=== PATIENT | male | born 1995 | race Caucasian/White ===

== ENCOUNTER 2020-03-24 08:01 | Inpatient (IN) | payer BC, OTHER ==
[~2020-03-24] VITALS: Ht 175.3 cm; Wt 85.0 kg
[2020-03-24 09:09] LABS: Basophils # (auto) 0 10 ^3/uL (0-0.2); Basophils % (auto) 0.4 % (0.0-2.0); Eosinophils # (auto) 0.2 10 ^3/uL (0-0.8); Eosinophils % (auto) 3.7 % (0.0-7.0); Hematocrit 40.9 % (41.0-53.0); Hemoglobin 14.6 g/dL (13.5-17.5); Lymphocytes # (auto) 1.3 10 ^3/uL (0.4-5.4); Lymphocytes % (auto) 18.8 % (10.0-50.0); Mean Corpuscular Hemoglobin 31.1 pg (28.0-32.0); Mean Corpuscular Hgb Conc. 35.8 g/dL (32.0-36.0); Mean Corpuscular Volume 86.9 fL (80.0-100.0); Monocytes # (auto) 0.5 10 ^3/uL (0-1.3); Monocytes % (auto) 6.9 % (0.0-12.0); Neutrophils # (auto) 4.7 10 ^3/uL (1.6-8.6); Neutrophils % (auto) 70.2 % (37.0-80.0); Red Blood Cells 4.71 10^6/uL (4.5-5.90); Red Cell Distribution Width 13.2 % (11.8-14.3); White Blood Cell 6.7 10^3/uL (4.4-10.8)
[2020-03-24 09:29] LABS: Albumin 3.9 g/dL (3.4-5.0); Anion Gap 7 (5-15); Blood Urea Nitrogen 13 mg/dL (7-18); Calcium 8.1 mg/dL (8.5-10.1); Carbon Dioxide 24 mmol/L (21-32); Chloride 110 mmol/L (98-107); Glucose 102 mg/dL (74-106); Magnesium 2.2 mg/dL (1.6-2.6); Sodium 141 mmol/L (136-145)
[2020-03-24 09:34] LABS: Alanine Aminotransferase 34 U/L (16-61); Alkaline Phosphatase 52 U/L (45-117); Aspartate Aminotransferase 17 U/L (15-37); BUN/Creatinine Ratio 14.6; Bilirubin, Total 0.5 mg/dL (0.2-1.0); GFR African American 135 mL/min; GFR Non-African American 112 mL/min; Total Protein 7.2 g/dL (6.4-8.2)
[2020-03-24] MEDS ORDERED: SODIUM CHLORIDE 0.9% 1,000 ML IV ONE (10:45)
[2020-03-24] MEDS ORDERED: ONDANSETRON HCL 4 MG/2 ML VIAL IV PRN (12:15)
[2020-03-24] MEDS ORDERED: ACETAMINOPHEN 500 MG TAB PO PRN (12:15)
[2020-03-24] MEDS ORDERED: traMADol HCL 50 MG TAB PO PRN (12:15)
[2020-03-24] MEDS ORDERED: NITROGLYCERIN 0.4 MG SL TAB SL PRN (12:15)
[2020-03-24] MEDS ORDERED: MORPHINE SULFATE INJECTION 2 MG/ML SYRG IV PRN (12:15)
[2020-03-24] MEDS ORDERED: LACTULOSE 20Gm/30ML SOLN PO PRN (12:15)
[2020-03-24] MEDS ORDERED: TEMAZEPAM 15 MG CAP PO PRN (12:15)
[2020-03-24] MEDS: SODIUM CHLORIDE 0.9% 1,000 ML IV SCH (12:48)
[2020-03-24] MEDS ORDERED: LIDOCAINE 1% HCL (LOCAL ANESTH.) INJ 20ML MDV ONE (14:08)
[2020-03-24] MEDS ORDERED: LIDOCAINE 1% HCL (LOCAL ANESTH.) INJ 20ML MDV ID ONE (14:45)
[2020-03-24] MEDS ORDERED: LORazepam 2MG/ML-1ML VIAL IV PRN (20:00)
[2020-03-24] MEDS: CLINDAMYCIN 300MG IV 50 ML IV SCH (22:22)
[2020-03-24 22:30] LABS: Urine Bacteria NONE SEEN /hpf (None Seen); Urine Blood Negative /uL (Negative); Urine Specific Gravity 1.013 (1.001-1.035); Urine WBC <1 /hpf (0 - 3)
[2020-03-24 22:57] LABS: Amphetamine Screen, Urine NEGATIVE (NEGATIVE); Barbiturate Scree,Urine NEGATIVE (NEGATIVE); Benzodiazephine Screen, Urine NEGATIVE (NEGATIVE); Cannabinoid Screen, Urine POSITIVE (NEGATIVE); Cocaine Screen, Urine NEGATIVE (NEGATIVE); Opiate Scree,Urine NEGATIVE (NEGATIVE); Phencyclidine Screen, Urine NEGATIVE (NEGATIVE)
[2020-03-25] MEDS: SODIUM CHLORIDE 0.9% 1,000 ML IV SCH ×2 (00:45→13:15)
[2020-03-25] MEDS: CLINDAMYCIN 300MG IV 50 ML IV SCH ×3 (04:48→21:43)
[2020-03-25 05:00] VITALS: BP 124/71
[2020-03-25 05:01] VITALS: BP 124/71
[2020-03-25 08:00] VITALS: BP 124/84
[2020-03-25] MEDS: ASPirin 81 mg TAB PO SCH (10:39)
[2020-03-25 16:00] VITALS: BP 103/60
[2020-03-25 21:47] VITALS: BP 115/73
[2020-03-26] MEDS: SODIUM CHLORIDE 0.9% 1,000 ML IV SCH ×2 (00:52→14:15)
[2020-03-26] MEDS: CLINDAMYCIN 300MG IV 50 ML IV SCH ×2 (06:41→14:00)
[2020-03-26 06:54] VITALS: BP 110/82
[2020-03-26 08:27] LABS: Basophils # (auto) 0 10 ^3/uL (0-0.2); Basophils % (auto) 0.1 % (0.0-2.0); Eosinophils # (auto) 0.1 10 ^3/uL (0-0.8); Eosinophils % (auto) 1.3 % (0.0-7.0); Hematocrit 41.6 % (41.0-53.0); Hemoglobin 14.6 g/dL (13.5-17.5); Lymphocytes # (auto) 1.5 10 ^3/uL (0.4-5.4); Lymphocytes % (auto) 15.6 % (10.0-50.0); Mean Corpuscular Hemoglobin 30.3 pg (28.0-32.0); Mean Corpuscular Volume 86.6 fL (80.0-100.0); Monocytes # (auto) 0.9 10 ^3/uL (0-1.3); Monocytes % (auto) 9.1 % (0.0-12.0); Neutrophils # (auto) 7.3 10 ^3/uL (1.6-8.6); Neutrophils % (auto) 73.9 % (37.0-80.0); Red Blood Cells 4.81 10^6/uL (4.5-5.90); Red Cell Distribution Width 13.3 % (11.8-14.3); White Blood Cell 9.9 10^3/uL (4.4-10.8)
[2020-03-26 08:48] VITALS: BP 106/73
[2020-03-26 09:09] LABS: BUN/Creatinine Ratio 16.9; Calcium 8.3 mg/dL (8.5-10.1); Potassium 4.2 mmol/L (3.5-5.1)
[2020-03-26] MEDS: ASPirin 81 mg TAB PO SCH (10:00)
[2020-03-26 13:22] VITALS: BP 106/73
== END 2020-03-26 15:05 | disposition home or self-care (01) | DRG 312 ==
LOC: ER 08:01 → TELE 08:02 → TELE-CENTR 03-25 03:10
PROVIDERS: ADMIT Internal Medicine; ATTEND Internal Medicine
PROC: 0CQ1XZZ Repair Lower Lip, External Approach (ICD-10-PCS; principal; 2020-03-24)
DX: R55 Syncope and collapse (principal); D84.9 Immunodeficiency, unspecified; F12.90 Cannabis use, unspecified, uncomplicated; F17.200 Nicotine dependence, unspecified, uncomplicated; S01.511A Laceration without foreign body of lip, initial encounter; Z20.822 Contact with and (suspected) exposure to COVID-19; R00.1 Bradycardia, unspecified; E66.9 Obesity, unspecified; Z68.27 Body mass index [BMI] 27.0-27.9, adult; Y93.89 Activity, other specified; Y92.89 Other specified places as the place of occurrence of the external cause; Y99.8 Other external cause status
CPT/HCPCS: 12013; 36415; 70450; 70551; 71045; 72125; 80048; 80053; 80307; 81001; 82550; 83735; 84443; 84484; 85025; 85379; 85652; 87426; 93005; 93306; 93886; 95819; 96361; 96365; G0378; J2001; J3490

== ENCOUNTER → 2020-05-31 | Outpatient (CLI) | payer BC ==
[2020-05-31 16:06] LABS: Calcium 8.8 mg/dL (8.5-10.1); Magnesium 2.5 mg/dL (1.6-2.6); Potassium 4.1 mmol/L (3.5-5.1)
[2020-05-31 16:09] LABS: BUN/Creatinine Ratio 12.5; Bilirubin, Total 0.6 mg/dL (0.2-1.0); Total Protein 7.4 g/dL (6.4-8.2)
== END | disposition home or self-care (01) ==
LOC: LAB 14:07
PROVIDERS: ATTEND Internal Medicine
DX: I49.9 Cardiac arrhythmia, unspecified (principal)
CPT/HCPCS: 36415; 80053; 82533; 83735; 84443

== ENCOUNTER 2020-06-02 13:45 | Inpatient (IN) | payer BC ==
[~2020-06-02] VITALS: Ht 175.3 cm; Wt 98.8 kg
[2020-06-02] MEDS ORDERED: ASPirin 81 mg TAB PO ONE (14:00)
[2020-06-02] MEDS ORDERED: PROCHLORPERAZINE EDISYLATE 5 MG/ML 2ML VIAL IV ONE (14:45)
[2020-06-02] MEDS ORDERED: MORPHINE SULFATE 4 MG/ML SYR/VIAL IV ONE (14:45)
[2020-06-02 14:48] LABS: Basophils # (auto) 0.1 10 ^3/uL (0-0.2); Basophils % (auto) 0.3 % (0.0-2.0); Eosinophils # (auto) 0 10 ^3/uL (0-0.8); Hematocrit 43.8 % (41.0-53.0); Hemoglobin 15.1 g/dL (13.5-17.5); Lymphocytes % (auto) 3.8 % (10.0-50.0); Mean Corpuscular Hgb Conc. 34.4 g/dL (32.0-36.0); Mean Corpuscular Volume 87.2 fL (80.0-100.0); Monocytes % (auto) 7.6 % (0.0-12.0); Neutrophils # (auto) 23.2 10 ^3/uL (1.6-8.6); Neutrophils % (auto) 88.3 % (37.0-80.0); Nucleated Red Blood Cells % 0.5 %; Platelet Count (auto) 241 10^3/uL (140-450); Red Blood Cells 5.02 10^6/uL (4.5-5.90); Red Cell Distribution Width 13.8 % (11.8-14.3); White Blood Cell 26.3 10^3/uL (4.4-10.8)
[2020-06-02 15:04] LABS: Potassium 3.6 mmol/L (3.5-5.1)
[2020-06-02 15:08] LABS: Urine Bacteria NONE SEEN /hpf (None Seen); Urine Blood 1+ /uL (Negative); Urine Mucus FEW (None Seen); Urine Specific Gravity 1.012 (1.001-1.035); Urine WBC 7 /hpf (0 - 3)
[2020-06-02 15:13] LABS: Albumin 4.7 g/dL (3.4-5.0); Bilirubin, Total 1.2 mg/dL (0.2-1.0); Calcium 8.7 mg/dL (8.5-10.1)
[2020-06-02] MEDS ORDERED: PIPERACILLIN-TAZOB 3.375GM 100 ML IV ONE (15:15)
[2020-06-02] MEDS ORDERED: VANCOMYCIN 1GM/250ML 250 ML IV ONE (15:15)
[2020-06-02 16:56] LABS: Alcohol, Urine < 3.0 mg/dL (0-10); Amphetamine Screen, Urine NEGATIVE (NEGATIVE); Barbiturate Scree,Urine NEGATIVE (NEGATIVE); Benzodiazephine Screen, Urine NEGATIVE (NEGATIVE); Cannabinoid Screen, Urine POSITIVE (NEGATIVE); Cocaine Screen, Urine NEGATIVE (NEGATIVE); Opiate Scree,Urine NEGATIVE (NEGATIVE); Phencyclidine Screen, Urine NEGATIVE (NEGATIVE)
[2020-06-02] MEDS ORDERED: ONDANSETRON HCL 4 MG/2 ML VIAL IV PRN (20:00)
[2020-06-02] MEDS ORDERED: LORazepam 0.5 MG TAB PO PRN (20:00)
[2020-06-02] MEDS ORDERED: LABETALOL HCL 5 MG/ML 4ML SYRINGE IV PRN (20:00)
[2020-06-02] MEDS ORDERED: VANCOMYCIN PER PHARMACY 0 MG IV SCH (20:00)
[2020-06-02] MEDS ORDERED: NITROGLYCERIN 0.4 MG SL TAB SL PRN (20:00)
[2020-06-02] MEDS ORDERED: DOCUSATE CALCIUM 240 MG CAP PO PRN (20:00)
[2020-06-02] MEDS ORDERED: MORPHINE SULF INJ 2 MG/ML SYRINGE 1ML IV PRN ×2 (20:00)
[2020-06-02] MEDS ORDERED: ACETAMINOPHEN 500 MG TAB PO PRN (20:00)
[2020-06-02] MEDS: SODIUM CHLORIDE 0.9% 1,000 ML IV SCH (20:25)
[2020-06-02] MEDS: VANCOMYCIN 1GM/250ML 250 ML IV SCH (22:21)
[2020-06-02 23:36] VITALS: BP 127/80
[2020-06-02 23:49] VITALS: BP 127/80
[2020-06-03] MEDS: PIPERACILLIN-TAZOB 3.375GM 100 ML IV SCH ×5 (00:26→23:48)
[2020-06-03] MEDS: SODIUM CHLORIDE 0.9% 1,000 ML IV SCH ×3 (04:01→22:21)
[2020-06-03 05:00] VITALS: BP 118/71
[2020-06-03 07:13] LABS: Basophils # (auto) 0 10 ^3/uL (0-0.2); Basophils % (auto) 0.2 % (0.0-2.0); Eosinophils # (auto) 0 10 ^3/uL (0-0.8); Eosinophils % (auto) 0.1 % (0.0-7.0); Hematocrit 42.4 % (41.0-53.0); Hemoglobin 14.6 g/dL (13.5-17.5); Lymphocytes # (auto) 1.2 10 ^3/uL (0.4-5.4); Lymphocytes % (auto) 6.5 % (10.0-50.0); Mean Corpuscular Hemoglobin 30.3 pg (28.0-32.0); Mean Corpuscular Hgb Conc. 34.4 g/dL (32.0-36.0); Monocytes # (auto) 1.6 10 ^3/uL (0-1.3); Monocytes % (auto) 8.8 % (0.0-12.0); Neutrophils # (auto) 15.7 10 ^3/uL (1.6-8.6); Neutrophils % (auto) 84.4 % (37.0-80.0); Nucleated Red Blood Cells % 0.1 %; Platelet Count (auto) 219 10^3/uL (140-450); Red Blood Cells 4.82 10^6/uL (4.5-5.90); Red Cell Distribution Width 14.1 % (11.8-14.3); White Blood Cell 18.7 10^3/uL (4.4-10.8)
[2020-06-03 07:29] LABS: INR 1.04 (0.9-1.15)
[2020-06-03 07:40] LABS: Chloride 106 mmol/L (98-107); Potassium 3.4 mmol/L (3.5-5.1); Sodium 138 mmol/L (136-145)
[2020-06-03 07:57] LABS: Alanine Aminotransferase 45 U/L (16-61); Albumin 4.1 g/dL (3.4-5.0); Alkaline Phosphatase 66 U/L (45-117); Anion Gap 13 (5-15); Aspartate Aminotransferase 64 U/L (15-37); BUN/Creatinine Ratio 10.7; Bilirubin, Total 1.8 mg/dL (0.2-1.0); Blood Urea Nitrogen 16 mg/dL (7-18); Calcium 8.4 mg/dL (8.5-10.1); Carbon Dioxide 19 mmol/L (21-32); GFR African American 73 mL/min; GFR Non-African American 61 mL/min; Glucose 90 mg/dL (74-106); Total Protein 7.6 g/dL (6.4-8.2)
[2020-06-03 08:50] VITALS: BP 117/66
[2020-06-03] MEDS: PANTOPRAZOLE 40 MG TAB PO SCH (09:38)
[2020-06-03] MEDS: VANCOMYCIN 1GM/250ML 250 ML IV SCH (09:38)
[2020-06-03] MEDS ORDERED: ENOXAPARIN SOD 40 MG/0.4 ML SYRINGE SC SCH (10:00)
[2020-06-03] MEDS ORDERED: MORPHINE SULF INJ 2 MG/ML SYRINGE 1ML IV PRN (11:45)
[2020-06-03] MEDS ORDERED: traMADol HCL 50 MG TAB PO PRN (11:45)
[2020-06-03 12:54] VITALS: BP 119/68
[2020-06-03 17:00] VITALS: BP 125/78
[2020-06-03 22:00] VITALS: BP 119/71
[2020-06-04 05:00] VITALS: BP 123/68
[2020-06-04] MEDS: PIPERACILLIN-TAZOB 3.375GM 100 ML IV SCH ×3 (05:44→18:00)
[2020-06-04 06:52] LABS: Basophils # (auto) 0 10 ^3/uL (0-0.2); Basophils % (auto) 0.3 % (0.0-2.0); Eosinophils # (auto) 0.2 10 ^3/uL (0-0.8); Eosinophils % (auto) 1.5 % (0.0-7.0); Hematocrit 39.3 % (41.0-53.0); Hemoglobin 13.7 g/dL (13.5-17.5); Lymphocytes # (auto) 1.7 10 ^3/uL (0.4-5.4); Lymphocytes % (auto) 13.4 % (10.0-50.0); Mean Corpuscular Hemoglobin 30.3 pg (28.0-32.0); Mean Corpuscular Hgb Conc. 34.8 g/dL (32.0-36.0); Mean Corpuscular Volume 87.1 fL (80.0-100.0); Monocytes # (auto) 1.3 10 ^3/uL (0-1.3); Monocytes % (auto) 10.3 % (0.0-12.0); Neutrophils # (auto) 9.4 10 ^3/uL (1.6-8.6); Neutrophils % (auto) 74.5 % (37.0-80.0); Platelet Count (auto) 200 10^3/uL (140-450); Red Blood Cells 4.51 10^6/uL (4.5-5.90); White Blood Cell 12.7 10^3/uL (4.4-10.8)
[2020-06-04 07:09] LABS: Potassium 3.5 mmol/L (3.5-5.1)
[2020-06-04 07:14] LABS: Calcium 8.4 mg/dL (8.5-10.1)
[2020-06-04] MEDS: SODIUM CHLORIDE 0.9% 1,000 ML IV SCH ×2 (07:30→17:30)
[2020-06-04 09:05] VITALS: BP 127/76
[2020-06-04] MEDS: PANTOPRAZOLE 40 MG TAB PO SCH (09:59)
[2020-06-04 13:14] VITALS: BP 130/83
[2020-06-04 16:31] VITALS: BP 124/69
[2020-06-04 22:00] VITALS: BP 123/79
[2020-06-05] MEDS: PIPERACILLIN-TAZOB 3.375GM 100 ML IV SCH ×4 (00:21→17:53)
[2020-06-05] MEDS: SODIUM CHLORIDE 0.9% 1,000 ML IV SCH ×2 (03:28→13:30)
[2020-06-05 05:00] VITALS: BP 122/79
[2020-06-05 06:26] LABS: Protein, Urine 58.3 mg/dL (0.0-11.9)
[2020-06-05 07:35] VITALS: BP 129/94
[2020-06-05 07:35] LABS: Basophils # (auto) 0 10 ^3/uL (0-0.2); Basophils % (auto) 0.3 % (0.0-2.0); Eosinophils # (auto) 0.3 10 ^3/uL (0-0.8); Hematocrit 38.6 % (41.0-53.0); Hemoglobin 13.7 g/dL (13.5-17.5); Lymphocytes # (auto) 1.7 10 ^3/uL (0.4-5.4); Lymphocytes % (auto) 16.3 % (10.0-50.0); Mean Corpuscular Hgb Conc. 35.4 g/dL (32.0-36.0); Mean Corpuscular Volume 87.5 fL (80.0-100.0); Monocytes # (auto) 1.3 10 ^3/uL (0-1.3); Monocytes % (auto) 12.1 % (0.0-12.0); Neutrophils # (auto) 7.2 10 ^3/uL (1.6-8.6); Neutrophils % (auto) 68.3 % (37.0-80.0); Platelet Count (auto) 200 10^3/uL (140-450); Red Blood Cells 4.41 10^6/uL (4.5-5.90); Red Cell Distribution Width 13.7 % (11.8-14.3); White Blood Cell 10.6 10^3/uL (4.4-10.8)
[2020-06-05 07:49] LABS: Albumin 3.5 g/dL (3.4-5.0); Calcium 8.3 mg/dL (8.5-10.1); Potassium 3.7 mmol/L (3.5-5.1)
[2020-06-05 07:53] LABS: BUN/Creatinine Ratio 13.8; Bilirubin, Total 1.5 mg/dL (0.2-1.0)
[2020-06-05 09:00] VITALS: BP 129/94
[2020-06-05] MEDS: PANTOPRAZOLE 40 MG TAB PO SCH (10:09)
[2020-06-05 13:00] VITALS: BP 129/86
[2020-06-05 23:25] VITALS: BP 128/82
[2020-06-06] MEDS: PIPERACILLIN-TAZOB 3.375GM 100 ML IV SCH ×2 (00:02→05:39)
[2020-06-06] MEDS: SODIUM CHLORIDE 0.9% 1,000 ML IV SCH ×2 (00:03→09:30)
[2020-06-06 04:45] VITALS: BP 122/73
[2020-06-06 08:27] LABS: Basophils # (auto) 0 10 ^3/uL (0-0.2); Basophils % (auto) 0.4 % (0.0-2.0); Eosinophils # (auto) 0.2 10 ^3/uL (0-0.8); Eosinophils % (auto) 2.7 % (0.0-7.0); Hematocrit 36.5 % (41.0-53.0); Hemoglobin 13.1 g/dL (13.5-17.5); Lymphocytes # (auto) 1.5 10 ^3/uL (0.4-5.4); Lymphocytes % (auto) 17.7 % (10.0-50.0); Mean Corpuscular Hemoglobin 31.2 pg (28.0-32.0); Mean Corpuscular Hgb Conc. 35.9 g/dL (32.0-36.0); Monocytes # (auto) 0.9 10 ^3/uL (0-1.3); Monocytes % (auto) 10.7 % (0.0-12.0); Neutrophils # (auto) 5.9 10 ^3/uL (1.6-8.6); Neutrophils % (auto) 68.5 % (37.0-80.0); Platelet Count (auto) 209 10^3/uL (140-450); Red Blood Cells 4.19 10^6/uL (4.5-5.90); Red Cell Distribution Width 13.6 % (11.8-14.3); White Blood Cell 8.6 10^3/uL (4.4-10.8)
[2020-06-06 08:50] LABS: Potassium 3.7 mmol/L (3.5-5.1)
[2020-06-06 09:00] VITALS: BP 129/81
[2020-06-06 09:00] LABS: Albumin 3.5 g/dL (3.4-5.0); BUN/Creatinine Ratio 15.3; Bilirubin, Total 0.9 mg/dL (0.2-1.0); Calcium 8.4 mg/dL (8.5-10.1); Total Protein 6.7 g/dL (6.4-8.2)
[2020-06-06] MEDS: PANTOPRAZOLE 40 MG TAB PO SCH ×2 (09:12→21:34)
[2020-06-06 09:14] LABS: INR 1.02 (0.9-1.15)
[2020-06-06 13:00] VITALS: BP 155/58
[2020-06-06 15:02] LABS: Hepatitis A Ab IgM Negative; Hepatitis B Core IgM Negative; Hepatitis B Surface Antigen Negative (Negative); Hepatitis C Antibody Negative (Negative)
[2020-06-06 17:00] VITALS: BP 133/87
[2020-06-06] MEDS: DOXYCYCLINE 100 MG TAB/CAP PO SCH (21:34)
[2020-06-06 22:00] VITALS: BP 133/82
[2020-06-07 05:00] VITALS: BP 127/63
[2020-06-07 06:39] LABS: Basophils # (auto) 0.1 10 ^3/uL (0-0.2); Basophils % (auto) 0.7 % (0.0-2.0); Eosinophils # (auto) 0.4 10 ^3/uL (0-0.8); Eosinophils % (auto) 4.6 % (0.0-7.0); Hematocrit 38.4 % (41.0-53.0); Hemoglobin 13.4 g/dL (13.5-17.5); Mean Corpuscular Hemoglobin 30.6 pg (28.0-32.0); Mean Corpuscular Volume 87.6 fL (80.0-100.0); Monocytes # (auto) 1.1 10 ^3/uL (0-1.3); Monocytes % (auto) 11.7 % (0.0-12.0); Neutrophils # (auto) 5.9 10 ^3/uL (1.6-8.6); Platelet Count (auto) 249 10^3/uL (140-450); Red Blood Cells 4.38 10^6/uL (4.5-5.90); Red Cell Distribution Width 13.7 % (11.8-14.3); White Blood Cell 9.5 10^3/uL (4.4-10.8)
[2020-06-07 07:09] LABS: Albumin 3.6 g/dL (3.4-5.0); Calcium 8.8 mg/dL (8.5-10.1); Potassium 4.2 mmol/L (3.5-5.1)
[2020-06-07 07:14] LABS: Bilirubin, Total 0.5 mg/dL (0.2-1.0)
[2020-06-07 08:06] LABS: RPR Non Reactive (Non Reactive)
[2020-06-07 08:08] LABS: BUN/Creatinine Ratio 12.4
[2020-06-07] MEDS: DOXYCYCLINE 100 MG TAB/CAP PO SCH (09:12)
[2020-06-07 09:20] VITALS: BP 137/79
[2020-06-07] MEDS ORDERED: PANTOPRAZOLE 40 MG TAB PO SCH (10:00)
[2020-06-07 13:00] VITALS: BP 124/75
[2020-06-07 16:32] VITALS: BP 124/75
== END 2020-06-07 17:00 | disposition home or self-care (01) | DRG 871 ==
LOC: ER 13:45 → TELE 19:58 → TELE-WESTW 21:59
PROVIDERS: ADMIT Family Medicine; ATTEND Internal Medicine
DX: A41.9 Sepsis, unspecified organism (principal); N17.0 Acute kidney failure with tubular necrosis; I24.9 Acute ischemic heart disease, unspecified; N39.0 Urinary tract infection, site not specified; I38 Endocarditis, valve unspecified; Z20.822 Contact with and (suspected) exposure to COVID-19; R21 Rash and other nonspecific skin eruption; R79.89 Other specified abnormal findings of blood chemistry; F12.10 Cannabis abuse, uncomplicated; E86.0 Dehydration; K14.0 Glossitis; N18.9 Chronic kidney disease, unspecified; R09.02 Hypoxemia; R31.29 Other microscopic hematuria; Z79.899 Other long term (current) drug therapy
CPT/HCPCS: 36415; 70450; 71045; 73030; 76775; 80048; 80053; 80074; 80307; 81001; 82570; 83516; 83520; 83605; 83880; 84155; 84156; 84165; 84300; 84443; 84484; 85025; 85610; 85652; 86141; 86160; 86225; 86235; 86256; 86592; 86703; 87040; 87086; 87426; 93005; 93306; 96365; 96366; 96367; 96375; G0378; J2543

== ENCOUNTER → 2020-06-30 | Outpatient (CLI) | payer BC ==
[2020-06-30 10:37] LABS: Urine Blood Negative /uL (Negative); Urine Specific Gravity 1.022 (1.001-1.035)
[2020-06-30 10:39] LABS: Basophils # (auto) 0.1 10 ^3/uL (0-0.2); Basophils % (auto) 0.5 % (0.0-2.0); Eosinophils # (auto) 0.3 10 ^3/uL (0-0.8); Hematocrit 46.3 % (41.0-53.0); Hemoglobin 16.2 g/dL (13.5-17.5); Lymphocytes # (auto) 2.4 10 ^3/uL (0.4-5.4); Mean Corpuscular Hemoglobin 30.4 pg (28.0-32.0); Mean Corpuscular Volume 86.7 fL (80.0-100.0); Monocytes # (auto) 0.7 10 ^3/uL (0-1.3); Monocytes % (auto) 6.5 % (0.0-12.0); Neutrophils # (auto) 7.4 10 ^3/uL (1.6-8.6); Nucleated Red Blood Cells % 0.3 %; Platelet Count (auto) 250 10^3/uL (140-450); Red Blood Cells 5.34 10^6/uL (4.5-5.90); Red Cell Distribution Width 13.3 % (11.8-14.3); White Blood Cell 10.8 10^3/uL (4.4-10.8)
[2020-06-30 10:47] LABS: Creatinine, Urine 247 mg/dL (30.0-125.0); Protein, Urine 34.7 mg/dL (0.0-11.9)
[2020-06-30 11:02] LABS: Potassium 3.7 mmol/L (3.5-5.1)
[2020-06-30 11:04] LABS: BUN/Creatinine Ratio 11.7; Phosphorus 2.8 mg/dL (2.5-4.90); Uric Acid 7.1 mg/dL (3.5-7.2)
== END | disposition home or self-care (01) ==
LOC: LAB 08:56
PROVIDERS: ATTEND Internal Medicine Nephrology
DX: N18.30 Chronic kidney disease, stage 3 unspecified (principal); D63.1 Anemia in chronic kidney disease; M10.9 Gout, unspecified; E21.3 Hyperparathyroidism, unspecified; N39.0 Urinary tract infection, site not specified; R80.9 Proteinuria, unspecified; E56.9 Vitamin deficiency, unspecified
CPT/HCPCS: 36415; 80069; 81003; 82306; 82570; 83970; 84156; 84550; 85025

== ENCOUNTER → 2020-09-01 | Outpatient (CLI) | payer BC ==
[2020-09-01 10:23] LABS: Urine Amorphous Crystal MANY /hpf (None Seen); Urine Bacteria FEW /hpf (None Seen); Urine Blood Negative /uL (Negative); Urine Mucus FEW (None Seen); Urine Specific Gravity 1.021 (1.001-1.035); Urine WBC <1 /hpf (0 - 3)
[2020-09-01 10:55] LABS: Potassium 4.2 mmol/L (3.5-5.1)
[2020-09-01 11:00] LABS: BUN/Creatinine Ratio 12.5; Calcium 8.8 mg/dL (8.5-10.1); Total Protein 7.6 g/dL (6.4-8.2); Uric Acid 7.6 mg/dL (3.5-7.2)
[2020-09-01 14:13] LABS: Basophils # (auto) 0 10 ^3/uL (0-0.2); Basophils % (auto) 0.5 % (0.0-2.0); Eosinophils # (auto) 0.5 10 ^3/uL (0-0.8); Eosinophils % (auto) 5.2 % (0.0-7.0); Hematocrit 45.9 % (41.0-53.0); Hemoglobin 16.1 g/dL (13.5-17.5); Lymphocytes # (auto) 2.6 10 ^3/uL (0.4-5.4); Lymphocytes % (auto) 28.2 % (10.0-50.0); Mean Corpuscular Hemoglobin 30.7 pg (28.0-32.0); Mean Corpuscular Hgb Conc. 35.1 g/dL (32.0-36.0); Mean Corpuscular Volume 87.5 fL (80.0-100.0); Monocytes # (auto) 0.9 10 ^3/uL (0-1.3); Monocytes % (auto) 9.5 % (0.0-12.0); Neutrophils # (auto) 5.2 10 ^3/uL (1.6-8.6); Neutrophils % (auto) 56.6 % (37.0-80.0); Nucleated Red Blood Cells % 0.1 %; Platelet Count (auto) 228 10^3/uL (140-450); Red Blood Cells 5.25 10^6/uL (4.5-5.90); Red Cell Distribution Width 13.5 % (11.8-14.3); White Blood Cell 9.2 10^3/uL (4.4-10.8)
== END | disposition home or self-care (01) ==
LOC: LAB 09:30
PROVIDERS: ATTEND Internal Medicine Nephrology
DX: N18.31 Chronic kidney disease, stage 3a (principal); D63.1 Anemia in chronic kidney disease; E21.3 Hyperparathyroidism, unspecified; R80.9 Proteinuria, unspecified; E56.9 Vitamin deficiency, unspecified; M10.9 Gout, unspecified
CPT/HCPCS: 36415; 80053; 81001; 82043; 82306; 83970; 84550; 85025; 85049